=== PATIENT | male | born 2005 | race Two or more races ===

== ENCOUNTER 2023-12-20 03:37 | Emergency (ER) | payer OTHER ==
[~2023-12-20] VITALS: Ht 175.3 cm; Wt 65.2 kg
[2023-12-20 04:12] VITALS: BP 117/82; PULSE 81; RESP 14; TEMP 98.3; O2SAT 100
[2023-12-20] MEDS ORDERED: BENZLOZ2 MT (04:29)
[2023-12-20] MEDS ORDERED: PRED20TA2 PO (04:29)
[2023-12-20] MEDS ORDERED: CLIN-203 PO (04:29)
[2023-12-20] MEDS: DexAMETHasone SOD PHOS 10MG/1ML VIAL INJ IM ONE (04:38)
[2023-12-20] MEDS: cefTRIAXone SOD 1,000 MG VL IM ONE (04:39)
[2023-12-20] MEDS: LIDOCAINE VISCOUS 2% 15ML UD MT ONE (04:44)
== END 2023-12-20 04:27 | disposition home or self-care (01) ==
LOC: ER 03:37
DX: S80.861A Insect bite (nonvenomous), right lower leg, initial encounter (principal); J03.90 Acute tonsillitis, unspecified; W57.XXXA Bitten or stung by nonvenomous insect and other nonvenomous arthropods, initial encounter; Y93.89 Activity, other specified; Y92.89 Other specified places as the place of occurrence of the external cause; Y99.8 Other external cause status
CPT/HCPCS: 96372; 99284; J0696; J1100

== ENCOUNTER 2024-02-22 17:51 | Emergency (ER) | payer OTHER ==
[~2024-02-22] VITALS: Ht 172.7 cm; Wt 60.6 kg
[~2024-02-22 17:51] MED LIST: BENZLOZ2 MT; CLIN-203 PO; PRED20TA2 PO
[2024-02-22 18:12] VITALS: BP 137/57; PULSE 67; RESP 16; O2SAT 95
[2024-02-22] MEDS ORDERED: IBUP-1456 PO (23:09)
== END 2024-02-22 23:16 | disposition home or self-care (01) ==
LOC: ER 17:51
DX: M77.01 Medial epicondylitis, right elbow (principal); Z79.1 Long term (current) use of non-steroidal anti-inflammatories (NSAID); Z79.52 Long term (current) use of systemic steroids; Z88.1 Allergy status to other antibiotic agents
CPT/HCPCS: 73080

== ENCOUNTER 2024-02-25 22:54 | Emergency (ER) | payer OTHER ==
[~2024-02-25] VITALS: Ht 175.3 cm; Wt 62.5 kg
[~2024-02-25 22:54] MED LIST changes: +IBUP-1456 PO
[2024-02-26] MEDS ORDERED: HYDR-4902 PO (03:58)
[2024-02-26] MEDS: DexAMETHasone SOD PHOS 10MG/1ML VIAL INJ IM ONE (04:56)
[2024-02-26] MEDS: HYDROcodone-ACET 5/325MG TAB PO ONE (04:57)
[2024-02-26 05:22] VITALS: BP 119/64; PULSE 76; RESP 18; TEMP 98
[2024-02-26 05:23] VITALS: O2SAT 98
== END 2024-02-26 05:33 | disposition home or self-care (01) ==
LOC: ER 22:54
DX: S63.8X1A Sprain of other part of right wrist and hand, initial encounter (principal); M77.01 Medial epicondylitis, right elbow; Z79.899 Other long term (current) drug therapy; W18.39XA Other fall on same level, initial encounter; Y93.89 Activity, other specified; Y92.89 Other specified places as the place of occurrence of the external cause; Y99.8 Other external cause status
CPT/HCPCS: 73120; 96372; 99283; J1100

== ENCOUNTER 2024-10-28 22:45 | Emergency (ER) | payer OTHER ==
[~2024-10-28] VITALS: Ht 172.7 cm; Wt 60.2 kg
[~2024-10-28 22:45] MED LIST changes: +HYDR-4902 PO
[2024-10-29] MEDS ORDERED: ACET500T58 PO (01:48)
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
--- NOTE | 2024-10-29 02:23 | DVH ---
EXAM: CT HEAD WITHOUT CONTRAST INDICATION: HEAD INJURY TECHNIQUE: CT of the head without intravenous contrast. Radiation Dose : 1. Head: CT Dose: CTDI volume is 58.6 mGy. Dose-length product is 1036 mGy*cm The dose indicators for CT are the volume Computed Tomography (CT) Dose Index (CTDIvol) and the Dose Length Product (DLP), and are measured in units of mGy and mGy-cm, respectively. These indicators are not patient dose, but values generated from the CT scanner acquisition factors. The report includes radiation exposure data for exposures received during this examination. COMPARISON: None FINDINGS: There is no evidence of acute intracranial hemorrhage, extra-axial collection, mass effect, midline s hift, herniation or hydrocephalus. The ventricles, sulci and cisterns are age appropriate. The calderón-white differentiation is intact. The mastoid air cells are clear. Mild mucosal thickening in the ethmoid and right maxillary sinuses. Rightward deviation of the nasal septum. The surrounding soft tissues and osseous structures are unremarkable. IMPRESSION: 1. No acute intracranial abnormality. Radiation optimization: All CT scans at this facility use at least one of these dose optimization abner hniques: automated exposure control mA and/or kV adjustment per patient size (includes targeted exam s where dose is matched to clinical indication) or iterative reconstruction.
[2024-10-29 02:33] VITALS: BP 104/64; PULSE 66; RESP 16; TEMP 97.8; O2SAT 97
== END 2024-10-29 02:55 | disposition home or self-care (01) ==
LOC: ER 22:45
DX: S09.8XXA Other specified injuries of head, initial encounter (principal); W50.0XXA Accidental hit or strike by another person, initial encounter; Y93.89 Activity, other specified; Y92.89 Other specified places as the place of occurrence of the external cause; Y99.8 Other external cause status
CPT/HCPCS: 70450

== ENCOUNTER 2024-12-28 15:10 | Emergency (ER) | payer OTHER ==
[~2024-12-28 15:10] MED LIST changes: +ACET500T58 PO
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
[2024-12-28 17:01] VITALS: BP 127/71; PULSE 85; RESP 17; TEMP 98.1; O2SAT 98
== END 2024-12-28 17:25 | disposition home or self-care (01) ==
LOC: ER 15:14
DX: S70.01XA Contusion of right hip, initial encounter (principal); M54.6 Pain in thoracic spine; V29.99XA Rider (driver) (passenger) of other motorcycle injured in unspecified traffic accident, initial encounter; Y93.I9 Activity, other involving external motion; Y92.410 Unspecified street and highway as the place of occurrence of the external cause; Y99.8 Other external cause status
CPT/HCPCS: 72070; 73502